=== PATIENT | female | born 1995 | race African-American/Black ===

== ENCOUNTER 2019-04-25 11:34 | Emergency (ER) | payer OTHER, SELFPAY ==
--- NOTE | ~2019-04-25 | XR_ITS ---
EXAMINATION: XR lumbar spine 2-3V DATE: 04/25/2019 13:12 INDICATION: Back pain. TECHNIQUE: 3 views of lumbar spine were obtained. COMPARISON: None. FINDINGS: Bone alignment is normal. Vertebral body heights and intervertebral disc heights are normal . The facet joints are normal. Calcifications in the pelvis may be phleboliths. IMPRESSION: 1. Normal lumbar spine. Reviewed, dictated and finalized at location A. CH[employer] PANEL JOINER IMPRESSION: 1. Normal lumbar spine.
--- NOTE | ~2019-04-25 | XR_ITS ---
EXAMINATION: XR thoracic spine 2V DATE: 04/25/2019 13:12 INDICATION: Thoracic back pain. TECHNIQUE: 2 views of thoracic spine were obtained. COMPARISON: None. FINDINGS: Bone alignment is normal. Vertebral body heights and intervertebral disc heights are normal . IMPRESSION: 1. Normal thoracic spine. Reviewed, dictated and finalized at location A. DIRECTOR IMPRESSION: 1. Normal thoracic spine.
[2019-04-25 11:46] VITALS: BP 110/64; PULSE 97; RESP 14; TEMP 36.7; O2SAT 100
[2019-04-25 12:01] LABS: Basophils Percent Auto 0.4 % (0.2-1.2); Eosinophils Percent Auto 0.2 % (0-4.4); Hematocrit 39.9 % (37.0-47.0); Hemoglobin 12.9 g/dL (12.0-15.0); Immature Granulocyte Absolute 0.01 K/mm3 (0.00-0.031); Immature Granulocyte Percent A 0.2 % (0-0.5); Lymphocytes Absolute Auto 2.46 K/mm3 (0.9-3.2); Lymphocytes Percent Auto 46.3 % (18.3-44.2); Mean Corpuscular HGB Conc 32.3 g/dl (32-36); Mean Corpuscular Hemoglobin 29.1 pg (26-34); Mean Corpuscular Volume 89.9 fl (80-100); Mean Platelet Volume 9.9 fl (7.4-10.4); Monocytes Absolute Auto 0.4 K/mm3 (0.1-0.6); Monocytes Percent Auto 8.1 % (2.6-8.5); Neutrophils Absolute Auto 2.4 K/mm3 (1.3-6.7); Neutrophils Percent Auto 44.8 % (45.5-73.1); Platelet Count Result 443 k/mm3 (150-375); Red Blood Count 4.44 M/mm3 (4.2-5.4); Red Cell Distribution Width 13.5 % (11.5-14.5); White Blood Count 5.3 K/mm3 (4.5-10.0)
[2019-04-25 12:14] LABS: Alanine Aminotransferase 15 U/L (4-35); Albumin Level 4.7 g/dL (3.5-5.1); Alkaline Phosphatase 31 U/L (38-126); Aspartate Amino Transferase 31 U/L (14-36); Bilirubin,Total 0.5 mg/dL (0.2-1.3); Blood Urea Nitrogen 11 mg/dL (7-17); Calcium 9.5 mg/dL (8.4-10.2); Carbon Dioxide 27 mmol/L (22-30); Chloride 99 mmol/L (98-107); Estimated CRCL calculation 83 ml/min; Estimated Glomerular Filt Rate > 60; Glucose 75 mg/dL (65-105); Lipase 72 U/L (23-300); Potassium 3.9 mmol/L (3.4-5.0); Sodium 137 mmol/L (137-145)
[2019-04-25 12:18] LABS: Add Urine Microscopic? YES; Appearance Urine Clear (Clear); Bacteria Urine Trace /hpf; Bilirubin Urine Negative (Negative); Blood Urine Negative (Negative); Color Urine Yellow (Yellow); Glucose Urine UA Negative (Negative); Ketones Urine Negative (Negative); Leukocyte Esterase Ur Negative LEU/UL (Negative); Mucus Urine Heavy /lpf; Nitrate Urine Negative (Negative); Protein Urine 1+ mg/dL (Negative); RBC Urine 0-2 /hpf (0-2); Specific Grav Ur 1.029 (1.001-1.035); Squamous Epithelial Cell Urine Many /hpf (Few); Urobilinogen Urine Negative mg/dL (<2.0)
--- NOTE | 2019-04-25 12:51 | ED.BACK ---
HPI - Back Pain/Injury General Chief Complaint: Back Pain/Injury Stated Complaint: r flank pain Time Seen by Provider: 04/25/19 12:49 Source: patient and RN notes reviewed Mode of arrival: ambulatory Limitations: no limitations History of Present Illness HPI Narrative: Pt is a 24 y/o female who presents to the ED with c/o rt low back pain starting yesterday and worsening since last night. She denies any recent falls or injuries to her back. Pt describes her pain as stabbing, and notes that her pain is aggravated with deep breathing. Pt currently rates her pain at 7/10. She reports intermittent SOB due to her pain, but denies any vomiting, dysuria, hematuria, cough, fever, or chills. She notes that her urine has also been darker in color recently. MD elicited complaint: back pain Onset (ago): day(s) (1) Timing: progressively worsening Pain scale (0-10): 7 Quality: stabbing Location: right lower back Exacerbating factors: deep breaths Associated symptoms: other (SOB; dark colored urine) Related Data Home Medications Medication Instructions Recorded Confirmed No Home Medications 04/25/19 04/25/19 Allergies Allergy/AdvReac Type Severity Reaction Status Date / Time No Known Allergies Allergy Unverified 06/05/18 12:05 Review of Systems Review of Systems: All systems reviewed & are unremarkable except as noted in HPI and below Constitutional: Constitutional: Denies chills, Denies fever(s), Denies headache(s) and Denies weakness ENT: Denies headache(s) and Denies neck pain Cardiovascular: Cardiovascular: Denies chest pain Respiratory: Respiratory: Denies cough and Reports dyspnea Gastrointestinal: Gastrointestinal: Denies abdominal pain, Denies diarrhea, Denies nausea and Denies vomiting Genitourinary: Genitourinary: Denies hematuria, Denies dysuria and Reports other (dark colored urine) Musculoskeletal: Musculoskeletal: Reports back pain (rt low back pain) and Denies neck pain Neurologic: Denies headache(s) and Denies weakness PMFSH Past Medical History Medical History Anxiety Depression Surgical History Surgical History Hx of section Hx of dilation and curettage Social History Social History Smoking status: Smoker, status unknown Exam Const: General: no acute distress and well developed Orientation/consciousness: oriented to person, oriented to place, oriented to time and patient oriented x3 Neck: Neck: normal visual inspection and full ROM Resp: Effort & Inspection: normal respiratory effort Auscultation: clear to auscultation bilaterally Cardio: Rate: regular rate Rhythm: regular rhythm GI: GI Palp: No abdominal tenderness and Yes Soft to palpation Back/Spine/Pelvis: Back: No back tenderness Skin: General skin exam: normal color and turgor normal Neuro: General: oriented to person, oriented to place, oriented to time and patient oriented x3 Cognition (Neuro): normal cognition Extrem: General: normal to inspection, full ROM and no pedal edema Psych: Appearance: grossly normal Mental Status: mental status grossly normal Affect: normal affect Course Vital Signs Vital signs: Vital Signs Temperature 36.7 C 04/25/19 11:46 Pulse Rate 97 04/25/19 11:46 Respiratory Rate 14 04/25/19 11:46 Blood Pressure 110/64 04/25/19 11:46 Pulse Oximetry 100 04/25/19 11:46 Temperature 36.7 C 04/25/19 11:46 Pulse Rate 97 04/25/19 11:46 Respiratory Rate 14 04/25/19 11:46 Blood Pressure 110/64 04/25/19 11:46 Pulse Oximetry 100 04/25/19 11:46 MDM - Back Pain/Injury Lab Data Result diagrams: 04/25/19 11:53 04/25/19 11:53 Labs: Lab Results 04/25/19 04/25/19 04/25/19 Range/Units 11:53 11:53 11:54 WBC 5.3 (4.5-10.0) K/mm3 RBC 4.44 (4.2-5.4) M/mm3 Hgb 12.9
[2019-04-25 14:23] VITALS: PULSE 70; RESP 16; O2SAT 98
== END 2019-04-25 14:23 | disposition home or self-care (01) ==
PROVIDERS: Emergency Medicine; Emergency Provider Emergency Medicine
DX: M54.5 Low back pain (principal)
CPT/HCPCS: 36415; 72070; 72100; 80053; 81001; 81025; 83690; 85025; 99283

== ENCOUNTER 2019-09-14 00:20 | Outpatient (CLI) | payer OTHER, SELFPAY ==
[2019-09-14 17:13] LABS: SARS-CoV-2 RNA PCR Negative
== END 2019-09-14 00:21 | disposition home or self-care (01) ==
LOC: ANHCOVIDDT 00:20
PROVIDERS: Visit Provider Obstetrics & Gynecology
DX: Z01.818 Encounter for other preprocedural examination (principal); Z11.59 Encounter for screening for other viral diseases
CPT/HCPCS: 87635; C9803; U0003

== ENCOUNTER 2019-09-16 02:00 | Day surgery (SDC) | payer OTHER, SELFPAY ==
[2019-09-03 11:37] VITALS: BMI 24.7
[2019-09-16] MEDS: LACTATED RINGERS 1,000 ML 30 ML IV CONT ×2 (09:00→10:38)
--- NOTE | 2019-09-16 09:17 | WPDANESEPPF ---
Anes - Initial Pre Proc Eval Procedure: Operation Date: 09/16/19 10:30 Proposed Procedures p Hysteroscopy, Adilene Endometrial Ablation - Gilles Flores MD s Laparoscopic Bilateral Tubal Ligation With Cautery - Gilles Flores MD Date/Time: 09/16/19 09:17 Surgeon: Gilles Flores MD Pre Op Diagnosis: menorrhagia and sterilization Patient Data Age: 24 Gender: F Height: 1.57 m Weight: 61.24 kg Allergies Allergy/AdvReac Type Severity Reaction Status Date / Time No Known Allergies Allergy Unverified 09/03/19 11:37 Home Medications Medication Instructions Recorded Confirmed Type L.acid-B.bifidum-B.animal-FOS 100 mg PO DAILY 09/03/19 09/03/19 History [Probiotic Complex] Patient hx anesthesia problems: none Family hx anesthesia problems: none [facility] Social History Social History Smoking status: Smoker, status unknown Anes - Eval Final PreProcedure Day of Procedure 09/16/19 09:17 Patient weight: normal Heart: regular rate and rhythm Lungs: clear to auscultation and normal air movement Airway: Mallampati scale class 1 Neurological: alert and oriented Last oral intake: >/= 8 hours ASA classification: II Emergent: no Anesthetic plan: proceed Anesthesia type and monitoring: general ETT and standard monitoring Informed Consent: The patient's anesthetic plan and its attendant risks and benefits were discussed with the patient/family/POA. Questions were solicited and answers provided to the satisfaction of the patient/family/POA.
--- NOTE | 2019-09-16 09:27 | WPDHPUPDATE1 ---
History and Physical Update Update Date/Time: 09/16/19 09:27 History and Physical has been reviewed, including an updated exam of the patient. There are NO changes in the patient's condition. Risks, benefits, and alternatives have been discussed and questions answered. Patient agrees to proceed with procedure.
[2019-09-16 09:42] VITALS: BP 114/76; PULSE 74; RESP 18; TEMP 36.6; O2SAT 100
--- NOTE | 2019-09-16 10:31 | SUR.OPER ---
350 ns in and 300 ns measured out
[2019-09-16 10:40] VITALS: BP 136/83; PULSE 105; RESP 16; TEMP 36.2; O2SAT 100
--- NOTE | 2019-09-16 10:52 | P.OP_ITS ---
Procedure Note - Detailed Date of procedure: 09/16/19 Pre-op diagnosis: menorrhagia and sterilization Post-op diagnosis: same Procedure performed: Laparoscopic bilateral tubal ligation, hysteroscopy and endometrial ablation Description of procedure: Patient was taken the operating room. She has prepped draped in the dorsal lithotomy position after induction of general anesthesia. A 5 mm abdominal incision was made in left upper quadrant of the abdomen with scalpel. A 5 mm trocars inserted the intra-abdominal cavity under direct visualization of the scope. Pneumoperitoneum was achieved. A 5 mm periumbilical incision was made using a scalpel on the abdominal scan. A 5 mm trocar was inserted the intra-abdominal cavity under visualization of the scope. The fallopian tube was grasped with the bipolar cautery in the ampullary karo on. It was completely desiccated in a 1.5 cm area of the fallopian tube. This was performed in identical fashion on the contralateral side. The instruments were withdrawn. The pneumoperitoneum was reduced. The trocars were removed. The skin was closed with subcuticular 4 Monocryl. This incisions were covered with Dermabond. The patient tolerated the procedure well. She was taken to recover room in stable condition. Speculum was placed in the vagina. Cervix was grasped with a tenaculum. The cervix was dilated to 9 mm. The hysteroscope was inserted the uterine cavity the above findings were noted. The uterus was measured using a uterine sound. Uterine cavity length was entered into the handle of the device. The device was inserted the intrauterine cavity and the array was expanded. The balloon cuff was expanded and the uterine cavity was found to be without defect. The energy cycles were then initiated and completed. The array was collapsed and the balloon cuff was collapsed. The instrument was withdrawn. The hysteroscope was reinserted and a well desiccated endometrium was observed. The speculum and tenaculum were withdrawn and the case was completed. Anesthesia: GETA Surgeon: Gilles Flores MD Estimated blood loss (mL): 10 Drains: No Packing: No Pathology: none sent Complications: No immediate complications Condition: stable Disposition: PACU Findings: Adhesions within the pelvis. The uterus had some adhesions to the anterior abdominal wall. The vulva vagina cervix appeared normal. The endometrial cavity appeared normal. It was well desiccated at the end of the procedure.
[2019-09-16 10:55] VITALS: BP 136/82; PULSE 67; RESP 10; O2SAT 100
[2019-09-16] MEDS: ONDANSETRON INJ 4 MG/2 ML VIAL IV PUSH (10:59)
[2019-09-16 11:10] VITALS: BP 133/88; PULSE 66; RESP 10; O2SAT 100
[2019-09-16 11:25] VITALS: BP 133/79; PULSE 64; RESP 16; O2SAT 100
[2019-09-16 11:37] VITALS: BP 135/83; PULSE 70; RESP 16
--- NOTE | 2019-09-16 15:40 | SUR.PHASEII ---
PT'S UPDATED UPON PT'S ARRIVAL TO OP AREA.
== END 2019-09-16 12:33 | disposition home or self-care (01) ==
PROVIDERS: Visit Provider Obstetrics & Gynecology
PROC: 0U5B8ZZ Destruction of Endometrium, Via Natural or Artificial Opening Endoscopic (ICD-10-PCS; CPT 58563; principal; 2019-09-16 10:30)
PROC: (CPT 58671; 2019-09-16 10:30)
DX: N92.0 Excessive and frequent menstruation with regular cycle (principal); Z30.2 Encounter for sterilization
CPT/HCPCS: 58670; 58563; A9270; J0131; J1100; J2250; J2405; J2704; J2710; J3010; J7030; J7120

== ENCOUNTER 2021-07-24 17:43 | Emergency (ER) | payer BC, MEDICAID, SELFPAY ==
--- NOTE | ~2021-07-24 | XR_ITS ---
EXAMINATION: XR chest 2V Exam Date/Time: 07/24/2021 20:20 CDT CLINICAL HISTORY: LIFT INJURY SATURDAY,PAIN RT SHOULDER BLADE INTO UPPER BACK Comparison: None available. RESULT: Lines, tubes, and devices: None. Lungs and pleura: Clear. Cardiomediastinal silhouette: Normal cardiomediastinal silhouette. Other: No acute osseous or upper abdominal finding. IMPRESSION: No acute cardiopulmonary process Reviewed, dictated and finalized at location K.
[2021-07-24 17:51] VITALS: BP 122/75; PULSE 79; RESP 20; TEMP 36.6; O2SAT 100
[2021-07-24] MEDS: IBUPROFEN 600 MG TABLET PO (20:33)
--- NOTE | 2021-07-24 20:46 | ED.BACK ---
HPI - Back Pain/Injury General Chief Complaint: Back Pain/Injury Stated Complaint: Upper Back Pain Time Seen by Provider: 07/24/21 20:12 Source: RN notes reviewed History of Present Illness HPI Narrative: Patient presents emerged department from home for right upper back pain. Patient states pain is located in the right upper back between the middle of her back and her shoulder blade and radiates up into her neck the pain is described as aching in nature and tight and worse with movement of her right arm she denies any known direct trauma or injury she states that she chronically has some pain started but got worse 3 days ago after she had been lifting some items she states she is not taking thing for the pain she denies any fevers or chills chest pain shortness of breath abdominal pain nausea vomiting numbness or tingling in the extremities or any other symptoms Related Data Home Medications Medication Instructions Recorded Confirmed No Home Medications 07/24/21 07/24/21 Allergies Allergy/AdvReac Type Severity Reaction Status Date / Time No Known Allergies Allergy Verified 07/24/21 19:48 Review of Systems Review of Systems: Gen.: Denies fevers or chills ENT: Denies congestion Respiratory: Denies shortness of breath or cough CV: Denies chest pain or palpitations GI: Denies abdominal pain nausea, emesis or diarrhea denies Musculoskeletal: See HPI Neuro: Denies numbness, tingling, weakness or focal weakness Skin: Denies rash Except as documented, all other systems reviewed and negative [facility] Past Medical History Medical History (Updated 07/24/21 @ 20:48 by Rich Bergeron DO) Anxiety Depression Surgical History Surgical History Hx of section Hx of dilation and curettage Social History Social History Smoking status: Smoker, status unknown Exam Narrative: APPEARANCE: No acute distress, nontoxic, resting in bed EYES: EOMI HEENT: Normocephalic, atraumatic, OMM RESPIRATORY: No respiratory distress Clear to auscultation bilaterally with no rhonchi wheezing or rales. CARDIOVASCULAR: Regular rate and rhythm without murmurs rubs or gallops. ABDOMINAL: Soft, nontender, nondistended, no rebound or guarding MUSCULOSKELETAl: Moves all extremities. No clubbing, cyanosis or edema. Back: No midline tenderness to palpation of thoracic or lumbar spine, tender palpation right rhomboid muscle region with muscle spasm present, pain increased with flexion or abduction of the shoulder greater than 90 degrees NEURO: Awake and alert. Following commands, speech normal, no focal deficits SKIN:: Warm, dry. No rashes lesions or abrasions PSYCHIATRIC: Normal affect/mood, Course Course Emergency Course: Discussed with patient results of workup and diagnosis. Discussed need for follow-up with primary care, proper use of medication, and reasons to return to the emergency department. Patient understands and agrees to current treatment plan Vital Signs Vital signs: Vital Signs Temperature 97.8 F 07/24/21 17:51 Pulse Rate 79 07/24/21 17:51 Respiratory Rate 20 07/24/21 17:51 Blood Pressure 122/75 07/24/21 17:51 Pulse Oximetry 100 07/24/21 17:51 Temperature 97.8 F 07/24/21 17:51 Pulse Rate 79 07/24/21 17:51 Respiratory Rate 20 07/24/21 17:51 Blood Pressure 122/75 07/24/21 17:51 Pulse Oximetry 100 07/24/21 17:51 MDM - Back Pain/Injury Imaging Data Radiologist's impression: ITS Impressions Chest X-Ray 07/24/21 20:45 IMPRESSION: No acute cardiopulmonary process Discharge Plan Discharge Clinical Impression: Rhomboid muscle pain, Acute upper back pain Patient Disposition: Home, Self-Care Condition: Stable Instructions: Antibiotic Form, Muscle Spasm (ED), Back Pain (ED) Additional Instructions: Return for increasing pain n
== END 2021-07-24 21:06 | disposition home or self-care (01) ==
LOC: ANHED 20:59
PROVIDERS: Emergency Provider Emergency Medicine
DX: M54.6 Pain in thoracic spine (principal)
CPT/HCPCS: 71046; 99283; A9270

== ENCOUNTER 2021-08-10 15:36 | Outpatient (CLI) | payer BC, MEDICAID, SELFPAY ==
--- NOTE | ~2021-08-10 | XR_ITS ---
XR lumbar spine 2-3V 08/10/2021 16:08 Indication: Low back pain Procedure: 3 views of the lumbar spine Comparison: 04/25/2019 Findings: Vertebral body heights are maintained. Pedicles intact. Normal lumbar lordosis. Sacral fora men are symmetric. No fracture or traumatic malalignment. Impression: 1: No significant abnormality of the lumbar spine. Reviewed, dictated and finalized at location B. Impression: 1: No significant abnormality of the lumbar spine.
--- NOTE | ~2021-08-10 | XR_ITS ---
XR thoracic spine 2V 08/10/2021 16:08 Indication: Back pain Procedure: 2 views thoracic spine Comparison: 04/25/2019 Findings: There is normal thoracic kyphosis. Vertebral body heights are maintained. No paraspinal sof t tissue abnormality. Pedicles intact. Surrounding osseous structures within normal limits. Impression: 1: No significant abnormality of the thoracic spine. Reviewed, dictated and finalized at location B. Impression: 1: No significant abnormality of the thoracic spine.
--- NOTE | ~2021-08-10 | XR_ITS ---
XR_CERV2-3V_CR INDICATION: Neck pain TECHNIQUE: 4 views of the cervical spine. FINDINGS: No prior studies for comparison The cervical spine is visualized to the cervicothoracic junction. There is no prevertebral soft tiss ue swelling, listhesis, or loss of vertebral body height. Intervertebral disc spaces are normal. Th e osseous central canal is patent. No displaced cervical spine fractures are identified. IMPRESSION: 1. No acute osseous abnormality of the cervical spine. Reviewed, dictated and finalized at location B.
== END 2021-08-10 15:37 | disposition home or self-care (01) ==
LOC: ANHIMG 15:37
PROVIDERS: Visit Provider Chiropractor
DX: M54.2 Cervicalgia (principal); M54.6 Pain in thoracic spine; M54.50 Low back pain, unspecified
CPT/HCPCS: 72040; 72070; 72100